=== PATIENT | female | born 1970 | race Caucasian/White ===

== ENCOUNTER → 2017-04-23 | Outpatient (CLI) | payer OTHER | LOC: MC.RAD 14:06 | DX: Z12.31 Encounter for screening mammogram for malignant neoplasm of breast (principal) ==

== ENCOUNTER → 2018-05-09 | Outpatient (CLI) | payer OTHER | LOC: MC.RAD 10:17 | DX: Z12.31 Encounter for screening mammogram for malignant neoplasm of breast (principal) ==

== ENCOUNTER → 2019-05-02 | Outpatient (CLI) | payer OTHER | LOC: MC.RAD 16:26 | DX: Z12.31 Encounter for screening mammogram for malignant neoplasm of breast (principal); N64.89 Other specified disorders of breast; R92.0 Mammographic microcalcification found on diagnostic imaging of breast ==

== ENCOUNTER → 2019-05-05 | Outpatient (CLI) | payer OTHER | LOC: MC.RAD 08:24 | DX: N63.10 Unspecified lump in the right breast, unspecified quadrant (principal) | CPT/HCPCS: G0279 ==

== ENCOUNTER → 2019-05-15 | Outpatient (CLI) | payer OTHER | LOC: MC.RAD 08:19 | DX: N64.89 Other specified disorders of breast (principal); Z98.82 Breast implant status ==

== ENCOUNTER → 2019-07-12 | Outpatient (CLI) | payer OTHER | LOC: ZCOL.LAB 11:56 | PROVIDERS: Radiology Radiation Oncology | DX: C50.111 Malignant neoplasm of central portion of right female breast (principal) ==

== ENCOUNTER → 2022-06-11 | Outpatient (CLI) | payer OTHER | LOC: COL.RAD 14:33 | DX: N95.0 Postmenopausal bleeding (principal); E28.0 Estrogen excess ==